=== PATIENT | female | born 1995 | race Hispanic/Latino ===

== ENCOUNTER 2018-07-05 22:00 | Emergency (ER) | payer BC ==
[2018-07-05] MEDS ORDERED: Sodium Chloride 0.9% 1,000 ML IV STA (23:05)
--- NOTE | 2018-07-05 23:08 | ED PDOC ---
HPI: Abdomen Time Seen by Provider: 07/05/18 22:55 Chief Complaint (Nursing): Abdominal Pain Chief Complaint (Provider): diarrhea and vomiting History Per: Patient History/Exam Limitations: no limitations Additional Complaint(s): 23 y/o F with no significant PMH who presents with diarrhea x 1 day and vomiting today. Patient states that she began having loose stools last night after dinner but today has had about 10 episodes of watery diarrhea and feels very weak. She took Immodium at about 6pm and began vomiting thereafter. She also has some lower abdominal pain. Denies fever, night sweats, cough, dizziness, palpi tations, dysuria. Everyone in her family had the same food and no one else is having similar symptoms. Denies any hx of abdominal surgeries. Past Medical History Reviewed: Historical Data, Nursing Documentation, Vital Signs Vital Signs: Last Vital Signs Temp 98.1 F 07/05/18 22:11 Pulse 112 H 07/05/18 22:11 Resp 16 07/05/18 22:11 BP 126/82 07/05/18 22:11 Pulse Ox 99 07/05/18 22:11 - Medical History PMH: No Chronic Diseases - Family History Family History: States: Unknown Family Hx - Home Medications Home Medications: Ambulatory Orders Medication Instructions Recorded Ondansetron ODT [Zofran ODT] 4 mg PO Q8 PRN #5 odt 07/06/18 - Allergies Allergies/Adverse Reactions: Allergies Allergy/AdvReac Type Severity Reaction Status Date / Time No Known Allergies Allergy Verified 07/05/18 22:10 Physical Exam - Reviewed Nursing Documentation Reviewed: Yes Vital Signs Reviewed: Yes - Physical Exam Appears: Positive for: Uncomfortable Head Exam: Positive for: ATRAUMATIC Skin: Positive for: Pallor Eye Exam: Positive for: Normal appearance Cardiovascular/Chest: Positive for: Regular Rate, Rhythm Respiratory: Positive for: Normal Breath Sounds Gastrointestinal/Abdominal: Positive for: Bowel Sounds (hyperactive), Soft, Tenderness (mild RLQ tenderness on palpation). Negative for: Mass, Distended, Guarding, Rebound Neurologic/Psych: Positive for: Alert, Oriented - Laboratory Results Result Diagrams: 07/06/18 00:01 07/06/18 00:01 - ECG O2 Sat by Pulse Oximetry: 99 Medical Decision Making Medical Decision Making: CBC, CMP CT abd/pelvis w/ PO and IV contrast Urine dip Urine preg 1L NS bolus CT scan results as per [facility]: Mild uncomplicated colitis. 4:15am: Re-evaluation: continues to have some nausea. Zofran 4mg IV ordered. 4:40am: Nausea has improved. Continues to have mild abdominal cramping. CT scan results discussed with patient and her mother. Stable for D/c home with return instructions given. Disposition - Clinical Impression Clinical Impression: Colitis - Patient ED Disposition Is Patient to be Admitted: No Counseled Patient/Family Regarding: Studies Performed, Diagnosis, Need For Followup, Rx Given - Disposition Referrals: James Babin MD [Family Provider] - Disposition: Routine/Home Disposition Time: 04:42 Condition: STABLE Additional Instructions: Stay hydrated. Take Zofran as needed for persistent nausea. Take Tylenol or Ibuprofen for pain. Return to ER if you cannot keep any fluids down, if you develop fevers, and if you feel lightheaded or if your abdominal pain worsens Prescriptions: Ondansetron ODT [Zofran ODT] 4 mg PO Q8 PRN #5 odt PRN Reason: Nausea/Vomiting Instructions: Colitis (DC) Forms: [employer] (Lao) Print Language: GERMAN
[2018-07-05] MEDS ORDERED: Iohexol 240 (50 ml) PO ONE (23:13)
[2018-07-05] MEDS ORDERED: Iohexol 240 (50 ml) ONE (23:37)
[2018-07-06 00:34] LABS: BASO % 0.1 % (0.0-2.0); EOS % 0.1 % (0.0-4.0); HEMOGLOBIN 15.3 g/dL (12.0-16.0); LYMPH # 0.4 K/uL (1.0-4.3); LYMPH % 3.5 % (20.0-40.0); MEAN CELL VOLUME 88.9 fl (81.0-99.0); MEAN CORPUSCULAR HEMOGLOBIN 30.6 pg (27.0-31.0); MEAN CORPUSCULAR HGB CONC 34.4 g/dL (33.0-37.0); MONO # 0.5 K/uL (0.0-0.8); MONO % 4.6 % (0.0-10.0); NEUT # 10.3 K/uL (1.8-7.0); NEUT % 91.7 % (50.0-75.0); NRBC % 0.1 % (0.0-0.0); PLATELET COUNT 247 K/uL (130-400); RBC 5.01 Mil/uL (3.80-5.20); RED CELL DISTRIBUTION WIDTH 12.9 % (11.5-14.5); WHITE BLOOD COUNT 11.2 K/uL (4.8-10.8)
[2018-07-06 00:41] LABS: ALB/GLOB RATIO 1.3 (1.0-2.1); ALBUMIN 4.6 g/dL (3.5-5.0); ALT/SGPT 14 U/L (9-52); AST/SGOT 22 U/L (14-36); BLOOD UREA NITROGEN 18 mg/dl (7-17); CALCIUM 9.8 mg/dL (8.4-10.2); GFR NON-AFRICAN AMERICAN > 60
[2018-07-06] MEDS ORDERED: Sodium Chloride 0.9% 50 ML IV ONE (01:46)
[2018-07-06] MEDS ORDERED: Iohexol 300 100 ML IJ ONE (01:46)
[2018-07-06 02:17] LABS: EOSINOPHIL 1 % (0-7); LYMPHOCYTE 3 % (20-50); MONOCYTE 3 % (0-10); NEUTROPHIL 93 % (42-75); PLATELET ESTIMATE NORMAL (NORMAL); TOTAL CELLS COUNTED 100
[2018-07-06 03:46] VITALS: BP 109/66; PULSE 99; RESP 18; TEMP 99.3
--- NOTE | 2018-07-06 13:57 | CT ---
Date of service: 07/06/2018 PROCEDURE: CT Abdomen and Pelvis with contrast HISTORY: diarrhea and RLQ abd pain COMPARISON: None. TECHNIQUE: Contrast dose: 90 mL Omnipaque 300 Radiation dose: Total exam DLP = 305.16 mGy-cm. This CT exam was performed using one or more of the following dose reduction techniques: Automated exposure control, adjustment of the mA and/or kV according to patient size, and/or use of iterative reconstruction technique. FINDINGS: LOWER THORAX: Unremarkable. LIVER: Mild hepatic steatosis suggested.. No gross lesion or ductal dilatation. GALLBLADDER AND BILE DUCTS: Unremarkable. PANCREAS: Unremarkable. No gross lesion or ductal dilatation. SPLEEN: Unremarkable. ADRENALS: Unremarkable. No mass. KIDNEYS AND URETERS: Unremarkable. No hydronephrosis. No solid mass. VASCULATURE: Unremarkable. No aortic aneurysm. No aortic atherosclerotic calcification or mural plaque present. BOWEL: Incomplete distention of the left colon to comment on. No suspect bowel obstruction.. No significant appearing gross small or large bowel mural thickening. APPENDIX: Normal appendix. PERITONEUM: Unremarkable. No free fluid. No free air. LYMPH NODES: Unremarkable. No enlarged lymph nodes. BLADDER: Unremarkable. REPRODUCTIVE: Bilateral adnexal mild fullness right greater than left coalescent the follicular cysts and/or ovarian edema with follicular cysts are compatible with this. For this consider correlation with pelvic ultrasound. Uterus is unremarkable appearing. BONES: No acute fracture. OTHER FINDINGS: The wall around the pyloric channel proximal duodenum appears circumferentially a prompt is moderate gastric distention with oral contrast. No complete obstruction is suggested. There are some mild partial obstruction the gastric emptying is a consideration. Incomplete distension of physiologic basis is another. Clinical follow-up recommended. No free air seen here. IMPRESSION: Moderate oral contrast laden gastric distension with pyloric channel/proximal duodenal circumferential mural thickening-some partial obstruction to click gastric emptying is 1 consideration. No complete gastric outlet obstruction suggested. Clinical correlation and clinical follow-up recommended. No more distal small or large bowel obstruction suggested. No diverticulitis or gross appendicitis. Bilateral adnexal fullness nonspecific small coalescent hypodensities-coalescent ovarian follicular cystic changes within the ovaries along with ovarian edema is 1 consideration. For this consider pelvic ultrasound. Mild hepatic steatosis. Comments: Most of the findings are discordant with [facility] preliminary report. On both reports-no more distal small large bowel obstruction is suggested. Comments: Study marked for PA review .
[2018-07-12 21:13] VITALS: O2SAT 99
== END 2018-07-06 04:42 | disposition home or self-care (01) ==
LOC: H.ER 22:00
DX: K52.9 Noninfective gastroenteritis and colitis, unspecified (principal)
CPT/HCPCS: 74177; 80053; 81025; 85025; 96361; 96374; 96376; 99284; J2405; J7030; Q9966; Q9967